=== PATIENT | female | born 1945 | race Caucasian/White ===

== ENCOUNTER 2019-01-20 08:20 | Emergency (ER) | payer MEDICARE, MEDICAID ==
[~2019-01-20] VITALS: Ht 139.7 cm; Wt 88.2 kg
[~2019-01-20 08:20] MED LIST: LISI-661 PO; METF500T20 PO
[2019-01-20] MEDS ORDERED: AMLO10TA7 PO (08:35)
[2019-01-20] MEDS ORDERED: ASPI81 PO (08:35)
[2019-01-20] MEDS ORDERED: CALC-1038 PO (08:35)
[2019-01-20] MEDS ORDERED: METO50 PO (08:35)
[2019-01-20] MEDS ORDERED: SIMV-260 PO (08:35)
[2019-01-20 08:56] LABS: GLUCOSE,POINT OF CARE 111 MG/DL (70-110)
[2019-01-20] MEDS ORDERED: IBUPROFEN 600 MG TABLET PO ONE (09:30)
[2019-01-20 11:07] VITALS: BP 124/65
[2019-01-20] MEDS ORDERED: METF-960 PO (13:47)
[2019-01-20] MEDS ORDERED: LISI-662 PO (13:47)
== END 2019-01-20 11:32 | disposition home or self-care (01) ==
LOC: EMS 08:21
DX: S80.01XA Contusion of right knee, initial encounter (principal); E11.9 Type 2 diabetes mellitus without complications; I10 Essential (primary) hypertension; Z79.899 Other long term (current) drug therapy; Z79.82 Long term (current) use of aspirin; Z79.84 Long term (current) use of oral hypoglycemic drugs; W01.0XXA Fall on same level from slipping, tripping and stumbling without subsequent striking against object, initial encounter; Y93.89 Activity, other specified; Y92.89 Other specified places as the place of occurrence of the external cause; Y99.8 Other external cause status